=== PATIENT | female | born 1985 | race African-American/Black ===

== ENCOUNTER 2017-05-21 21:26 | Emergency (ER) | payer SELFPAY ==
[~2017-05-21] VITALS: Ht 175.3 cm; Wt 123.0 kg
[2017-05-22 01:29] LABS: BASOPHILS % 0.7 % (0.0-2.0); EOSINOPHILS % 0.6 % (0.0-5.0); HEMATOCRIT. 36.5 % (36.0-48.0); HEMOGLOBIN. 12.2 g/dL (12.0-16.0); LYMPHOCYTES % 18.8 % (20.0-50.0); MEAN CORPUSCULAR HEMOGLOBIN 28.5 pg (28.0-32.0); MEAN CORPUSCULAR VOLUME 85.4 fL (81.0-99.0); MEAN PLATELET VOLUME 7.8 fl (7.4-10.4); MONOCYTES % 2.9 % (2.0-8.0); PLATELET 259 x1000/uL (130-400); RED BLOOD CELL COUNT 4.28 mill/uL (4.2-5.4); RED CELL DISTRIBUTION WIDTH 14.5 % (11.6-14.6)
[2017-05-22 01:33] LABS: PARTIAL THROMBOPLASTIN TIME 27.3 sec (24.0-34.0); PROTHROMBIN TIME 10.4 sec
[2017-05-22 01:40] LABS: CARBON DIOXIDE 28 mEq/L (21-32); CHLORIDE 103 mEq/L (98-107); TROPONIN I < 0.02 ng/mL (0.00-0.04)
[2017-05-22 04:28] VITALS: BP 128/86
== END 2017-05-22 04:25 | disposition left against medical advice (07) ==
LOC: ER 21:26
DX: I10 Essential (primary) hypertension (principal); R20.2 Paresthesia of skin; F41.9 Anxiety disorder, unspecified; R53.1 Weakness
CPT/HCPCS: 36415; 70450; 80053; 84484; 85025; 85610; 85730; 93005; 99285

== ENCOUNTER 2021-12-26 10:55 | Emergency (ER) | payer BC, MEDICAID ==
[~2021-12-26] VITALS: Ht 170.2 cm; Wt 130.0 kg
[2021-12-26] MEDS ORDERED: ONDANSETRON 4MG ODT PO STA (11:21)
[2021-12-26] MEDS ORDERED: LORAZEPAM 0.5MG TABLET PO ONE (11:30)
[2021-12-26 12:41] LABS: BASOPHILS % 0.6 % (0.0-2.0); EOSINOPHILS % 0.6 % (0.0-5.0); HEMATOCRIT. 37.4 % (36.0-48.0); HEMOGLOBIN. 12.3 g/dL (12.0-16.0); LYMPHOCYTES % 23.3 % (20.0-50.0); MEAN CORPUSCULAR HEMOGLOBIN 27.2 pg (28.0-32.0); MEAN CORPUSCULAR VOLUME 82.5 fL (81.0-99.0); MEAN PLATELET VOLUME 7.5 fl (7.4-10.4); MONOCYTES % 3.2 % (2.0-8.0); NEUTROPHILS % 72.3 % (40.0-76.0); PLATELET 261 x1000/uL (130-400); RED BLOOD CELL COUNT 4.53 mill/uL (4.2-5.4); RED CELL DISTRIBUTION WIDTH 14.8 % (11.6-14.6)
[2021-12-26 12:50] LABS: CHLORIDE 109 mEq/L (98-107)
[2021-12-26] MEDS ORDERED: SODIUM CHLORIDE 0.9% 1,000 ML IV ONE (13:15)
[2021-12-26] MEDS ORDERED: MECLIZINE 12.5MG TABLET PO ONE (13:15)
[2021-12-26 13:39] LABS: CLARITY URINE CLEAR (CLEAR); COLOR URINE YELLOW (YELLOW); KETONES URINE TRACE (NEGATIVE); LEUKOCYTE ESTERASE URINE NEGATIVE (NEGATIVE); NITRITE URINE NEGATIVE (NEGATIVE); OCCULT BLOOD URINE NEGATIVE (NEGATIVE); PROTEIN URINE NEGATIVE (NEGATIVE); SPECIFIC GRAVITY URINE 1.027 (1.005-1.030)
[2021-12-26 13:53] LABS: B-HCG QUANTITATIVE < 1 mIU/mL (<3)
[2021-12-26 15:00] VITALS: BP 133/64
[2021-12-26] MEDS ORDERED: ACETAMINOPHEN 325MG TABLET PO ONE (15:00)
== END 2021-12-26 16:10 | disposition home or self-care (01) ==
LOC: ER 10:55
DX: R53.1 Weakness (principal); R42 Dizziness and giddiness; R11.2 Nausea with vomiting, unspecified; R55 Syncope and collapse; F41.1 Generalized anxiety disorder; F43.0 Acute stress reaction
CPT/HCPCS: 36415; 71045; 80053; 81003; 83690; 84484; 84702; 85025; 93005; 96360; 99285; J7030; Q0162; J8597

== ENCOUNTER 2023-08-13 07:24 | Emergency (ER) | payer OTHER, MEDICAID ==
[~2023-08-13] VITALS: Ht 170.2 cm; Wt 100.0 kg
[2023-08-13 07:28] VITALS: O2SAT 100
[2023-08-13 07:57] VITALS: TEMP 98.2
[2023-08-13] MEDS ORDERED: KETOROLAC 30MG/ML VIAL IV NR (07:59)
[2023-08-13] MEDS ORDERED: ONDANSETRON HCL 4MG/2ML INJ IV NR (07:59)
[2023-08-13] MEDS ORDERED: SODIUM CHLORIDE 0.9% 1,000 ML IV ONE (08:00)
[2023-08-13] MEDS ORDERED: DEXAMETHASONE 4MG TABLET PO NR (08:00)
[2023-08-13 08:50] LABS: BASOPHILS % 0.6 % (0.0-2.0); EOSINOPHILS % 2.5 % (0.0-5.0); HEMATOCRIT. 35.1 % (36.0-48.0); HEMOGLOBIN. 11.4 g/dL (12.0-16.0); LYMPHOCYTES % 22.6 % (20.0-50.0); MEAN CORPUSCULAR HEMOGLOBIN 26.7 pg (28.0-32.0); MEAN CORPUSCULAR HGB CONC 32.4 g/dL (31.0-37.0); MEAN CORPUSCULAR VOLUME 82.2 fL (81.0-99.0); MEAN PLATELET VOLUME 8.4 fl (7.4-10.4); MONOCYTES % 4.8 % (2.0-8.0); NEUTROPHILS % 69.5 % (40.0-76.0); PLATELET 245 x1000/uL (130-400); RED BLOOD CELL COUNT 4.27 mill/uL (4.2-5.4); WHITE BLOOD COUNT 6.8 x1000/uL (4.5-11.0)
[2023-08-13 09:33] LABS: CHLORIDE 107 mEq/L (98-107); INDEX HEMOLYSI 1 (1-3); INDEX ICTERIC 1 (1-4); INDEX LIPEMIC 1 (1-3); POTASSIUM 4.1 mEq/L (3.5-5.1); SODIUM 141 mEq/L (136-145)
[2023-08-13 09:40] LABS: ALANINE AMINOTRANSFERASE 18 IU/L (13-61); ASPARTATE AMINOTRANSFERASE 13 IU/L (15-37); BILIRUBIN TOTAL 0.4 mg/dL (0.1-1.0); CALCIUM 8.5 mg/dL (8.5-10.1); CARBON DIOXIDE 30 mEq/L (21-32); GLUCOSE 104 mg/dL (70-105); UREA NITROGEN BLOOD 16 mg/dL (7-21)
[2023-08-13 10:02] LABS: HCG SCREEN NEGATIVE
[2023-08-13] MEDS ORDERED: MECLIZINE 25MG TABLET PO NR (10:45)
[2023-08-13] MEDS ORDERED: CARBAMIDE PEROXIDE 6.5% OTIC SOLN 15ML LEFT EAR ONE (11:15)
[2023-08-13] MEDS ORDERED: MECLIZINE 12.5MG TABLET PO NR (11:15)
[2023-08-13 12:34] VITALS: BP 110/62; PULSE 68; RESP 20
[2023-08-13] MEDS ORDERED: CARB-274 LEFT EAR (12:34)
[2023-08-13] MEDS ORDERED: MECL-299 PO (12:36)
== END 2023-08-13 13:03 | disposition home or self-care (01) ==
LOC: ER 07:24 → CANBEDREQ 11:59 → ER 13:03
DX: R42 Dizziness and giddiness (principal); D64.9 Anemia, unspecified; I10 Essential (primary) hypertension; Z98.890 Other specified postprocedural states
CPT/HCPCS: 80053; 84703; 85025; 36415; 70450; 93005; 96361; 96374; 96375; 99285; J8540; J8597; J1885; J2405; Z7610 ×4